=== PATIENT | female | born 1960 | race Asian ===

== ENCOUNTER → 2020-05-12 16:21 | Outpatient (CLI) | payer OTHER, SELFPAY | PROVIDERS: Referring Provider Physician Assistant Medical; Visit Provider Physician Assistant Medical | DX: E23.6 Other disorders of pituitary gland (principal); Z53.8 Procedure and treatment not carried out for other reasons ==

== ENCOUNTER → 2020-06-04 12:40 | Outpatient (CLI) | payer OTHER, SELFPAY ==
--- NOTE | 2020-06-04 | DI.MRI.S_ITS ---
PROCEDURE: MR BRAIN (PITUITARY) WWO CON INDICATIONS: Other disorders of pituitary gland TECHNIQUE: Noncontrast sagittal and axial FLAIR, axial gradient echo, axial diffusion and ADC through the brain. Thin-slice sagittal and coronal T1 spin echo, coronal T2 fast spin echo through the pituitary. After the administration contrast, optional dynamic coronal T1 spin echo, thin-slice coronal and sagittal T1 spin echo images through the pituitary fossa; axial T1 spin echo with fat saturation through the brain. COMPARISON: [facility], , MRI BRAIN W/WO CONTRAST, 11/30/2017, 9:39. [facility], , MRI ANGIO BRAIN WO, 11/30/2017, 10:01. FINDINGS: Image quality: Excellent. Pituitary Gland: Within the central/right aspect of the pituitary gland posteriorly, there is again seen a T2 hyperintense focus that measures 5 x 3 x 3 mm. This focus is low signal on T1 weighted images and does not demonstrate definite enhancement. The pituitary gland demonstrates normal signal and bulk. The pituitary stalk and infundibulum have an unremarkable appearance. A normal appearing pituitary bright spot is seen posteriorly on the precontrast sagittal T1-weighted images. The optic chiasm and the ventral forebrain have an unremarkable appearance. CSF Spaces: Ventricles are normal in size and shape. Basal cisterns are patent. No extra-axial fluid collections. Brain: No intracranial bleeds or mass effects. No abnormal intracranial enhancement. Disla-white matter interface is intact. Diffusion weighted images demonstrate no acute ischemic insults. Brainstem is normal. Normal intravascular flow voids are present. Brain parenchymal volume is within normal limits for age. Scattered foci of T2 weighted hyperintensity can be seen within the periventricular deep white matter, which most likely represent early chronic small vessel ischemic change in a patient of this age. Skull and face: Suboccipital craniectomy change can be seen. Calvarial marrow is normal in signal. Orbits appear normal. Sinuses: Sinuses and mastoids are clear. IMPRESSION: A 5 mm cystic focus is seen just to the right of the midline within the pituitary, which is not significantly changed compared to 2018. This may represent a benign pituitary cyst. Please correlate with patient history and endocrine laboratory results. Postoperative changes are seen, with suboccipital craniectomy. Dictated by: Farshad Barrett M.D. on 06/04/2020 at 14:00 Approved by: Sal CedilloD. on 06/04/2020 at 14:06
== END ==
PROVIDERS: PCP Physician Assistant Medical; Referring Provider Physician Assistant Medical; Visit Provider Physician Assistant Medical
DX: E23.6 Other disorders of pituitary gland (principal)
CPT/HCPCS: 70553; A9579

== ENCOUNTER → 2021-05-12 12:44 | Outpatient (CLI) | payer OTHER, SELFPAY ==
--- NOTE | 2021-05-12 | DI.MG.S_ITS ---
BILATERAL DIGITAL DIAGNOSTIC MAMMOGRAM 3D/2D SHORT-TERM FOLLOW-UP: 05/12/2021 CLINICAL: Short term follow up of the left breast, due for bilateral imaging. Comparison is made to exams dated: 10/01/2020 mammogram, 03/26/2020 mammogram, and 03/07/2019 mammogram - [facility]. There are scattered fibroglandular elements in both breasts. There is a 0.8 cm oval focal asymmetry in the left breast at 11 o'clock middle depth. This is not significantly changed. No other significant masses, calcifications, or other findings are seen in either breast. IMPRESSION: INCOMPLETE: NEEDS ADDITIONAL IMAGING EVALUATION The 0.8 cm oval focal asymmetry in the left breast is indeterminate. An ultrasound is recommended for further evaluation and is scheduled to immediately follow this examination. This exam was interpreted at Station ID: [id number]. NOTE: For mammograms, a report in lay terms will be sent to the patient. Approximately 15% of breast malignancies will not be visualized mammographically. In the management of a palpable breast mass, a negative mammogram must not discourage biopsy of a clinically suspicious lesion. Electronically Signed By: Phan Tong M.D. aty/:05/12/2021 14:02:49 ACR BI-RADS Category 0: Incomplete [id number]
--- NOTE | 2021-05-12 | DI.US.S_ITS ---
ULTRASOUND OF LEFT BREAST AND AXILLA: 05/12/2021 CLINICAL: Patient returns for a 6 month follow up of the left breast. Comparison is made to exams dated: 05/12/2021 mammogram - [facility], 10/01/2020 ultrasound, 10/01/2020 mammogram, 03/26/2020 ultrasound, 03/26/2020 mammogram, and 03/25/2019 ultrasound - [facility]. Color flow and real-time ultrasound of the left breast axilla were performed. Disla scale images of the real-time examination were reviewed. There is a 0.9 cm x 0.4 cm x 0.5 cm wider than tall oval mass with a circumscribed margin in the left breast at 11 o'clock middle depth 4 cm from the nipple. This oval mass is hypoechoic with posterior acoustic enhancement. This abnormality is not significantly changed and correlates with mammography findings. IMPRESSION: BENIGN There is no sonographic evidence of malignancy. The 0.9 cm x 0.4 cm x 0.5 cm wider than tall oval mass in the left breast resembles a complicated cyst or a fibroadenoma. This finding has demonstrated two years of stability and is consistent with a benign process. A 1 year screening mammogram is recommended. Findings and recommendations were conveyed to the patient during today's evaluation. This exam was interpreted at Station ID: [id number]. Electronically Signed By: Phan Tong M.D. aty/:05/12/2021 14:45:09 letter sent: Normal Exam Ultrasound BI-RADS: 2 Benign
== END ==
PROVIDERS: PCP Physician Assistant Medical; Referring Provider Nurse Practitioner Family; Visit Provider Nurse Practitioner Family
DX: R92.8 Other abnormal and inconclusive findings on diagnostic imaging of breast (principal); N63.22 Unspecified lump in the left breast, upper inner quadrant
CPT/HCPCS: 76642; 77066; G0279

== ENCOUNTER 2023-04-17 09:00 | Outpatient (RCR) | payer OTHER, SELFPAY ==
--- NOTE | 2023-02-14 12:00 | PT.OPPOC ---
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 Address: [address] [place] [address], [id number] Email: Tanya Nino PA-C Family Provider Non-Staff Primary Care Provider Specialty: Medical Address: [address] [place] [address] [address], [place], [address] Email: Attending Provider Specialty: Address: Phone: Fax: Email: Plan Of Care PT-OP-T Assessment and Plan Start: 02/14/23 09:03 Freq: Status: Active Protocol: Document 02/14/23 09:00 [facility] (Rec: 02/15/23 10:24 [facility] [id number]) Physical Therapy Assessment Rehab Potential Rehabilitation Potential Excellent Evaluation Complexity Number of Personal Factors/Comorbidities 0 Number of Body Systems Impaired 1-2 Clinical Presentation at Evaluation Stable Impairments Impairments Activity Tolerance,Pain, Posture,Soft Tissue Mobility, Strength,Tone Goals 4 Impairment Decreased endurance of the pelvic floor Short Term Goal (STG) Taylor is able to sustain a pelvic floor contraction in supine x 10 sec STG Duration 6 weeks Custodial Goal (LTG) Taylor is able to sustain a pelvic floor contraction in standing x 5-10 seconds LTG Duration 12 weeks 3 Impairment Pelvic floor guarding at rest and substitution with upper abdominal wall with attempting pelvic floor contraction Short Term Goal (STG) Taylor is educated in relaxation of the upper abdominal wall and pelvic floor muscles at rest using diaphragmatic breathing STG Duration 4 week s Pattern Duplicator Goal (LTG) Taylor is able to relax her pelvic floor to baseline on EMG biofeedback and is able to engage her pelvic floor without upper abdominal substitution LTG Duration 12 weeks 2 Impairment Pelvic floor weakness with MMT for the levator ani 2/5 Custodial Goal (LTG) spenser presents with improved muscle recruitment and strength to 3/5 MMT or better LTG Duration 12 weeks 1 Impairment pelvic pain rated 4-5/10 that is worse as the day progresses and can wake her up at night Short Term Goal (STG) Taylor is educated on pelvic decompression exercises to try at night STG Duration 4 weeks Custodial Goal (LTG) taylor reports a overall reduction in pelvic pain to a 1-2/10 and is no longer waking up with pelvic pressure at night LTG Duration 12 weeks Assessment Summary Assessment Taylor is a 63 year old female referred to PT with chief complaint of pelvic pain and heaviness from pelvic congestion and pelvic organ prolapse. She describes pelvic pain as being worse at night and she will also wake up with discomfort. The discomfort makes her feel as if she needs to have a bowel movement and void. After she goes to the bathroom she notes she feels better. She does have a history of a Leep procedure in 2015. With exam today Taylor presents with tightness of the upper abdominal wall and decreased fascial mobility of the diaphragm. She tends to stand with this tightness at rest which can create a downward pressure on her pelvic organs. There is also restricted mobility in the suprapubic fascia. With pelvic floor exam Taylor presents with guarding and tightness of the levator ani along with weakness. She does note she has been experiencing pain with intercourse so has not been sexually active. 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 I worked with tactile cues to facilitate pelvic floor relaxation in between pelvic floor contractions and Taylor started to be able to relax more with repetitions. She is a good candidate for pelvic floor training using EMG biofeedback, pelvic floor decompression exercises and positioning, myofascial release techniques for the abdominal and suprapubic fascia and HEP. Physical Therapy Plan Frequency and Duration Frequency of Treatment 1x/Week Duration of treatment (weeks) 12 Plan of Care Start Date 02/14/23 Plan of Care End Date 05/02/23 Therapeutic Interventions Therapeutic Interventions Home Exercise Program,Manual Therapy,Patient/Caregiver Education,Self-Care/Home Management,Soft Tissue Mobilization,Therapeutic Exercises Modalities Biofeedback Next Visit Focus/Plan Next Note Type Treatment Note Next Visit Plan Begin diaphragmatic breathing exercises and stretches for the pelvic floor, begin EMG biofeedback for pelvic floor endurance training Plan of Care Dates Plan of Care Start Date 02/14/23 Plan of Care End Date 05/02/23 Electronically Signed by: Chata Santiago PT 02/15/23 1101 If you are in agreement with this Plan of Care, please return a signed and dated copy. I have reviewed this Plan of Care and certify that the skilled therapy services above are required to meet the patient?s needs. Physician Signature Date Printed Name and Credentials Clinical Instructor Signature Printed Name and Credentials
--- NOTE | 2023-02-14 12:00 | PT.OIE ---
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 Address: [address] [place] [address], [id number] Email: Tanya Nino PA-C Family Provider Non-Staff Primary Care Provider Specialty: Medical Address: [facility] [address], [place], [address] Email: Attending Provider Specialty: Address: Phone: Fax: Email: Physical Therapy Initial Evaluation PT-OP-A Visit Information Start: 02/14/23 09:03 Freq: Status: Active Protocol: Document 02/14/23 09:04 [facility] (Rec: 02/14/23 09:24 [facility] [id number]) Out-Patient Physical Therapy Visit Information Visit Information Visit Type Initial Evaluation Visit Start Time 09:00 Visit Stop Time 09:45 Total Visit Minutes 45 Visit Number 1 Evaluation Information Evaluation Date 02/14/23 PT-OP-B Current Condition Start: 02/14/23 09:03 Freq: Status: Active Protocol: Document 02/14/23 09:00 [facility] (Rec: 02/14/23 09:24 [facility] [id number]) Current Condition History of Current Condition Onset Date 3 years Current Complaints pelvic pain, pelvic pressure, cramping, urinary urgency History of Current Condition pelvic pain worse at night and early in the am, she gets cramps and feels like she is going to the bathroom and it wakes her up. She has to go to the bathroom and stay there to void or have a bowel movement and afterwards she will feel better. Symptoms have been going on for 3 years . She had a hx of abnormal pap smear in 2014 and she had a Leep procedure to removal of the tissue. Now she has a normal but they found a uterine prolapse. She notes frequent voiding at home she goes every hour but at work she ignores it. She only leaks if she holds too long. She has daily bowel movements. She describes her pain as cramping and rates it 4-5/10 only 1 time per week does she wake up to go to the bathroom . With increased activity she can feel the pressure. PT-OP-C Subjective Start: 02/14/23 09:03 Freq: Status: Active Protocol: Document 02/14/23 09:00 [facility] (Rec: 02/15/23 10:24 [facility] [id number]) OP-PT Pain Assessment Pain Assessment Grid Paper Pain Assessment Grid Completed Yes Location pelvic pain Pain Location Details pelvic region and suprapubic fascia Intensity 5 Scale Used Numeric (0 - 10) Description Cramping,Pressure PT-OP-F Manual Assessment Start: 02/15/23:24 Freq: Status: Active Protocol: Document 02/14/23 09:00 [facility] (Rec: 02/15/23 10:25 [facility] [id number]) Manual Assessments Soft Tissue Assessment Soft Tissue Mobility Assessment tightness in the fascia surrounding the diaphragm, obliques, and in the suprapubic fascia PT-OP-I Pelvic Floor Start: 02/14/23 09:03 Freq: Status: Active Protocol: Document 02/14/23 09:25 [facility] (Rec: 02/14/23 09:48 [facility] [id number]) Pelvic Floor Assessment Urine Pelvic Floor Surgery No Urinary Symptoms Urge Sensation Other Urinary Symptoms pelvic pain and heaviness, frequent urination Pelvic Clock Pelvic Clock 3-6 Guarding Pelvic Clock 6-9 Guarding Pelvic Clock 9-12 Guarding Pelvic Clock Other Taylor presents with pelvic floor muscle guarding and decreased ability to relax her pelvic floor, with tactile cues we worked on pelvic floor contract/relax and I used manual pressure to encourage pelvic floor relaxation and this did improve with repetitions. Taylor also tends to tighten in her obliques creating a downward pressure on her pelvic organs with attempts at isolating the pelvic floor Prolapse Uterine Prolapse Grade 1 Contraction Ability Voluntary Contraction Weak Voluntary Relaxation Weak Manual Muscle Testing Left 2 Manual Muscle Testing Right 2 Manual Muscle Testing Anterior 2 Manual Muscle Testing Posterior 2 Muscle Endurance (Seconds) 5 Comments Pelvic Floor Comments decreased endurance at 5 seconds only PT-OP-Q Treatments Start: 02/14/23 09:03 Freq: Status: Active Protocol: Document 02/14/23 12:43 [facility] (Rec: 02/14/23 12:43 [facility] [id number]) Therapeutic Exercises Supine Exercises pelvic floor contract and relax hold x 5 rest x 10 sec Reps/Minutes hold x 5 sec rest x 10 seconds PT-OP-T Assessment and Plan Start: 02/14/23 09:03 Freq: Status: Active Protocol: Document 02/14/23 09:00 [facility] (Rec: 02/15/23 10:24 [facility] [id number]) Physical Therapy Assessment Rehab Potential Rehabilitation Potential Excellent Evaluation Complexity Number of Personal Factors/Comorbidities 0 Number of Body Systems Impaired 1-2 Clinical Presentation at Evaluation Stable Impairments Impairments Activity Tolerance,Pain, Posture,Soft Tissue Mobility, Strength,Tone Goals 4 Impairment Decreased endurance of the pelvic floor Short Term Goal (STG) Taylor is able to sustain a pelvic floor contraction in supine x 10 sec STG Duration 6 weeks Research Assistant Member Goal (LTG) Taylor is able to sustain a pelvic floor contraction in standing x 5-10 seconds LTG Duration 12 weeks 3 Impairment Pelvic floor guarding at rest and substitution with upper abdominal wall with attempting pelvic floor contraction Short Term Goal (STG) Taylor is educated in relaxation of the upper abdominal wall and pelvic floor muscles at rest using diaphragmatic breathing STG Duration 4 week s Longterm Goal (LTG) Taylor is able to relax her pelvic floor to baseline on EMG biofeedback and is able to engage her pelvic floor without upper abdominal substitution LTG Duration 12 weeks 2 Impairment Pelvic floor weakness with MMT for the levator ani 2/5 Longterm Goal (LTG) spenser presents with improved muscle recruitment and strength to 3/5 MMT or better LTG Duration 12 weeks 1 Impairment pelvic pain rated 4-5/10 that is worse as the day progresses and can wake her up at night Short Term Goal (STG) Taylor is educated on pelvic decompression exercises to try at night STG Duration 4 weeks Research Assistant Member Goal (LTG) taylor reports a overall reduction in pelvic pain to a 1-2/10 and is no longer waking up with pelvic pressure at night LTG Duration 12 weeks Assessment Summary Assessment Taylor is a 63 year old female referred to PT with chief complaint of pelvic pain and heaviness from pelvic congestion and pelvic organ prolapse. She describes pelvic pain as being worse at night and she will also wake up with discomfort. The discomfort makes her feel as if she needs to have a bowel movement and void. After she goes to the bathroom she notes she feels better. She does have a history of a Leep procedure in 2015. With exam today Taylor presents with tightness of the upper abdominal wall and decreased fascial mobility of the diaphragm. She tends to stand with this tightness at rest which can create a downward pressure on her pelvic organs. There is also restricted mobility in the suprapubic fascia. With pelvic floor exam Taylor presents with guarding and tightness of the levator ani along with weakness. She does note she has been experiencing pain with intercourse so has not been sexually active. 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 I worked with tactile cues to facilitate pelvic floor relaxation in between pelvic floor contractions and Taylor started to be able to relax more with repetitions. She is a good candidate for pelvic floor training using EMG biofeedback, pelvic floor decompression exercises and positioning, myofascial release techniques for the abdominal and suprapubic fascia and HEP. Physical Therapy Plan Frequency and Duration Frequency of Treatment 1x/Week Duration of treatment (weeks) 12 Plan of Care Start Date 02/14/23 Plan of Care End Date 05/02/23 Therapeutic Interventions Therapeutic Interventions Home Exercise Program,Manual Therapy,Patient/Caregiver Education,Self-Care/Home Management,Soft Tissue Mobilization,Therapeutic Exercises Modalities Biofeedback Next Visit Focus/Plan Next Note Type Treatment Note Next Visit Plan Begin diaphragmatic breathing exercises and stretches for the pelvic floor, begin EMG biofeedback for pelvic floor endurance training
--- NOTE | 2023-03-01 12:14 | PT.OTN ---
Current Diagnoses Pelvic muscle wasting (03/01/23) Female genital prolapse, unspecified (03/01/23) Other specified conditions associated with female genital organs and menstrual cycle (03/01/23) Physical Therapy Treatment Note PT-OP-A Visit Information Start: 02/14/23 09:03 Freq: Status: Active Protocol: Document 03/01/23 11:18 [facility] (Rec: 03/01/23 12:14 [facility] [id number]) Out-Patient Physical Therapy Visit Information Visit Information Visit Type Treatment Note Visit Start Time 11:18 Visit Stop Time 12:00 Visit Number 2 PT-OP-B Current Condition Start: 02/14/23 09:03 Freq: Status: Active Protocol: Document 02/14/23 09:00 [facility] (Rec: 02/14/23 09: [facility] [id number]) Current Condition History of Current Condition Onset Date 3 years Current Complaints pelvic pain, pelvic pressure, cramping, urinary urgency History of Current Condition pelvic pain worse at night and early in the am, she gets cramps and feels like she is going to the bathroom and it wakes her up. SHe has to go to the bathroom and stay there to void or have a bowel movement and afterwards she adalid feel better. Symptoms have been going on for 3 years . She had a hx of abnormal pap smear in 2014 and she had a Leep procedure to removal of the tissue. Now she has a normal but they found a uterine prolapse. She notes frequent voiding at home she ges every hour but at work she ignores it. She only leaks if she holds too long. She has daily bowel movements. SHe describes her pain as cramping and rates it 4-5/10 only 1 time per week does she wake up to go to the bathroom . With increased activity she can feel the pressure. PT-OP-C Subjective Start: 02/14/23 09:03 Freq: Status: Active Protocol: Document 03/01/23 11:18 [facility] (Rec: 03/01/23 12:14 [facility] [id number]) OP-PT Subjective Patient Comments Patient Comments pt noes she did good working on her exercises PT-OP-F Manual Assessment Start: 02/15/23 10:24 Freq: Status: Active Protocol: Document 02/14/23 09:00 [facility] (Rec: 02/15/23 10:25 [facility] [id number]) Manual Assessments Soft Tissue Assessment Soft Tissue Mobility Assessment tightness in the fascia surrounding the diaphraghm, obliques, and in the suprapubic fascia PT-OP-I Pelvic Floor Start: 02/14/23 09:03 Freq: Status: Active Protocol: Document 02/14/23 09:25 [facility] (Rec: 02/14/23 09:48 [facility] [id number]) Pelvic Floor Assessment Urine Pelvic Floor Surgery No Urinary Symptoms Urge Sensation Other Urinary Symptoms pelvic pain and heaviness, frequent urination Pelvic Clock Pelvic Clock 3-6 Guarding Pelvic Clock 6-9 Guarding Pelvic Clock 9-12 Guarding Pelvic Clock Other Amy presents with pelvic floor muscle guarding and decreased ability to relax her pelvic floor, with taclike cues we worked on pelvic floor contract/relax and I used manual pressure to encourage pelvic floor relaxation and this did improve with repititions. mAy also tends to tighten in her obliques creating a downward pressure on her pelvic organs with attempts at isolating the pelvic floor Prolapse Uterine Prolapse Grade 1 Contraction Ability Voluntary Contraction Weak Voluntary Relaxation Weak Manual Muscle Testing Left 2 Manual Muscle Testing Right 2 Manual Muscle Testing Anterior 2 Manual Muscle Testing Posterior 2 Muscle Endurance (Seconds) 5 Comments Pelvic Floor Comments decreased endurance at 5 seconds only PT-OP-Q Treatments Start: 02/14/23 09:03 Freq: Status: Active Protocol: Document 03/01/23 11:18 [facility] (Rec: 03/01/23 12:14 [facility] [id number]) Therapeutic Exercises Supine Exercises pelvic floor 10 sec holds Supine Exercise Name with EMG biofeedback Reps/Minutes average 11 max 20 resting tone of the pelvic floor on EMG biofeedback Comments 3.0 at rest diaphragmatic breathing Reps/Minutes x 10 rounds Comments inhale x 4 exhale x 4 Manual Therapy Treatment Soft Tissue Mobilization visceral mobilization of the bladder Comments worked on mobilization of the bladder in supine, tightness of the suprapubic fascia is present but Amy is able to tolerate well. fascial release of the diaphragm and upper abdominal wall Mobilization Type Myofascial Release Body Position Supine Comments tightness and guarding of the upper abdominal wall and diaphraghm PT-OP-T Assessment and Plan Start: 02/14/23 09:03 Freq: Status: Active Protocol: Document 03/01/23 11:18 [facility] (Rec: 03/01/23 12:14 [facility] [id number]) Physical Therapy Assessment Goals 4 Impairment Decreased endurance of the pelvic floor Short Term Goal (STG) Amy is able to sustain a pelvic floor contraction in supine x 10 sec STG Duration 6 weeks Intermediate Goal (LTG) Amy is able to sustain a pelvic floor contraction in standing x 5-10 seconds LTG Duration 12 weeks 3 Impairment Pelvic floor guarding at rest and substitution with upper abdominal wall with attempting pelvic floor contraction Short Term Goal (STG) Amy is educated in relaxation of the upper abdominal wall and pelvic floor muscles at rest using diaphragmiatic breathing STG Duration 4 week s Mincemeat Maker Goal (LTG) Amy is able to relax her pelvic floor to baseline on EMG biofeedback and is able to engage her pelvic floor without upper abdominal substitution LTG Duration 12 weeks 2 Impairment Pelvic floor weakness with MMT for the levator ani 2/5 Mincemeat Maker Goal (LTG) spenser presents with improved muscle recruitment and strength to 3/5 MMT or better LTG Duration 12 weeks 1 Impairment pelvic pain rated 4-5/10 that is worse as the day progresses and can wake her up at night Short Term Goal (STG) Amy is educated on pelvic decompression exercises to try at night STG Duration 4 weeks Intermediate Goal (LTG) amy reports a overall reduction in pelvic pain to a 1-2/10 and is no longer waking up with pelvic pressure at night LTG Duration 12 weeks Assessment Summary Assessment I started MFR and visceral massage today in the upper abdominal wall and suprapubic fascia and amy tolerated well. She was educated in diaphragmatic breathing and EMG biofeedback was initiated. Resting tone started at 3.0 uv and decreased to 1.5 and sometimes baseline with pelvic floor long holds Physical Therapy Plan Next Visit Focus/Plan Next Note Type Treatment Note Next Visit Plan continue with diaphragmatic breathing and EMG biofeedback, progress hip abduction with theraband and stretches for the pelvic floor. Check in with how Amy is doing with toileting with working on pelvic floor relaxation
--- NOTE | 2023-03-08 15:48 | PT.OTN ---
Current Diagnoses Pelvic muscle wasting (03/08/23) Female genital prolapse, unspecified (03/08/23) Other specified conditions associated with female genital organs and menstrual cycle (03/08/23) Physical Therapy Treatment Note PT-OP-A Visit Information Start: 02/14/23 09:03 Freq: Status: Active Protocol: Document 03/08/23 08:20 [facility] (Rec: 03/08/23 08:27 [facility] [id number]) Out-Patient Physical Therapy Visit Information Visit Information Visit Type Treatment Note Visit Start Time 08:20 Visit Stop Time 09:00 Visit Number 3 PT-OP-B Current Condition Start: 02/14/23 09:03 Freq: Status: Active Protocol: Document 02/14/23 09:00 [facility] (Rec: 02/14/23 09:24 [facility] [id number]) Current Condition History of Current Condition Onset Date 3 years Current Complaints pelvic pain, pelvic pressure, cramping, urinary urgency History of Current Condition pelvic pain worse at night and early in the am, she gets cramps and feels like she is going to the bathroom and it wakes her up. SHe has to go to the bathroom and stay there to void or have a bowel movement and afterwards she adalid feel better. Symptoms have been going on for 3 years . She had a hx of abnormal pap smear in 2014 and she had a Leep procedure to removal of the tissue. Now she has a normal but they found a uterine prolapse. She notes frequent voiding at home she ges every hour but at work she ignores it. She only leaks if she holds too long. She has daily bowel movements. SHe describes her pain as cramping and rates it 4-5/10 only 1 time per week does she wake up to go to the bathroom . With increased activity she can feel the pressure. PT-OP-C Subjective Start: 02/14/23 09:03 Freq: Status: Active Protocol: Document 03/08/23 08:20 [facility] (Rec: 03/08/23 08:27 [facility] [id number]) OP-PT Subjective Patient Comments Patient Comments pt notes she was cramping on the right side, she woke up in the middle of the night she had a bad cramp one time this past week PT-OP-F Manual Assessment Start: 02/15/23 10:24 Freq: Status: Active Protocol: Document 02/14/23 09:00 [facility] (Rec: 02/15/23 10:25 [facility] [id number]) Manual Assessments Soft Tissue Assessment Soft Tissue Mobility Assessment tightness in the fascia surrounding the diaphraghm, obliques, and in the suprapubic fascia PT-OP-I Pelvic Floor Start: 02/14/23 09:03 Freq: Status: Active Protocol: Document 02/14/23 09:25 [facility] (Rec: 02/14/23 09:48 [facility] [id number]) Pelvic Floor Assessment Urine Pelvic Floor Surgery No Urinary Symptoms Urge Sensation Other Urinary Symptoms pelvic pain and heaviness, frequent urination Pelvic Clock Pelvic Clock 3-6 Guarding Pelvic Clock 6-9 Guarding Pelvic Clock 9-12 Guarding Pelvic Clock Other Amy presents with pelvic floor muscle guarding and decreased ability to relax her pelvic floor, with taclike cues we worked on pelvic floor contract/relax and I used manual pressure to encourage pelvic floor relaxation and this did improve with repititions. Amy also tends to tighten in her obliques creating a downward pressure on her pelvic organs with attempts at isolating the pelvic floor Prolapse Uterine Prolapse Grade 1 Contraction Ability Voluntary Contraction Weak Voluntary Relaxation Weak Manual Muscle Testing Left 2 Manual Muscle Testing Right 2 Manual Muscle Testing Anterior 2 Manual Muscle Testing Posterior 2 Muscle Endurance (Seconds) 5 Comments Pelvic Floor Comments decreased endurance at 5 seconds only PT-OP-Q Treatments Start: 02/14/23 09:03 Freq: Status: Active Protocol: Document 03/08/23 08:20 [facility] (Rec: 03/08/23 09:01 [facility] [id number]) Therapeutic Exercises Supine Exercises modified squat stretch Reps/Minutes hold 30 -2 min pelvic floor 10 sec holds Supine Exercise Name with EMG biofeedback Reps/Minutes average 11 max 20 resting tone of the pelvic floor on EMG biofeedback Comments 2.5 uv resting pelvic floor contract and relax hold x 5 rest x 10 sec Reps/Minutes hold x 5 sec rest x 10 seconds Comments average 14.3 and 25.6 Manual Therapy Treatment Soft Tissue Mobilization visceral mobilization of the bladder Comments worked on mobilization of the bladder in supine, tightness of the suprapubic fascia is present but Amy is able to tolerate well. fascial release of the diaphragm and upper abdominal wall Mobilization Type Myofascial Release Body Position Supine Comments tightness and guarding of the upper abdominal wall and diaphraghm PT-OP-T Assessment and Plan Start: 02/14/23 09:03 Freq: Status: Active Protocol: Document 03/08/23 08:20 [facility] (Rec: 03/13/23 15:47 [facility] [id number]) Physical Therapy Assessment Assessment Summary Assessment Amy is responding well to abdominal massage and MFR over the suprapubic fascia. She is doing better with her pelvic floor long holds for endurance this week as compared to last week Physical Therapy Plan Frequency and Duration Frequency of Treatment 1x/Week Duration of treatment (weeks) 12 Plan of Care Start Date 02/14/23 Plan of Care End Date 05/02/23 Therapeutic Interventions Therapeutic Interventions Home Exercise Program,Manual Therapy,Patient/Caregiver Education,Self-Care/Home Management,Soft Tissue Mobilization,Therapeutic Exercises Modalities Biofeedback Next Visit Focus/Plan Next Note Type Treatment Note Next Visit Plan continue with diaphragmatic breathing and EMG biofeedback, progress hip abduction with theraband and stretches for the pelvic floor. Check in with how Amy is doing with toileting with working on pelvic floor relaxation
--- NOTE | 2023-03-27 17:01 | PT.OTN ---
Current Diagnoses Pelvic muscle wasting (03/27/23) Female genital prolapse, unspecified (03/27/23) Other specified conditions associated with female genital organs and menstrual cycle (03/27/23) Physical Therapy Treatment Note PT-OP-A Visit Information Start: 02/14/23 09:03 Freq: Status: Active Protocol: Document 03/27/23 09:00 [facility] (Rec: 03/27/23 09:46 [facility] [id number]) Out-Patient Physical Therapy Visit Information Visit Information Visit Type Treatment Note Visit Start Time 09:00 Visit Stop Time 09:45 Visit Number 4 PT-OP-B Current Condition Start: 02/14/23 09:03 Freq: Status: Active Protocol: Document 02/14/23 09:00 [facility] (Rec: 02/14/23 09:24 [facility] [id number]) Current Condition History of Current Condition Onset Date 3 years Current Complaints pelvic pain, pelvic pressure, cramping, urinary urgency History of Current Condition pelvic pain worse at night and early in the am, she gets cramps and feels like she is going to the bathroom and it wakes her up. SHe has to go to the bathroom and stay there to void or have a bowel movement and afterwards she adalid feel better. Symptoms have been going on for 3 years . She had a hx of abnormal pap smear in 2014 and she had a Leep procedure to removal of the tissue. Now she has a normal but they found a uterine prolapse. She notes frequent voiding at home she ges every hour but at work she ignores it. She only leaks if she holds too long. She has daily bowel movements. SHe describes her pain as cramping and rates it 4-5/10 only 1 time per week does she wake up to go to the bathroom . With increased activity she can feel the pressure. PT-OP-C Subjective Start: 02/14/23 09:03 Freq: Status: Active Protocol: Document 03/27/23 09:00 [facility] (Rec: 03/27/23 09:46 [facility] [id number]) OP-PT Subjective Patient Comments Patient Comments pt reports her symptoms are not as bad as they were, no complaints of cramping at night and only 1 episode of pelvic pain this past week PT-OP-F Manual Assessment Start: 02/15/23 10:24 Freq: Status: Active Protocol: Document 02/14/23 09:00 [facility] (Rec: 02/15/23 10:25 [facility] [id number]) Manual Assessments Soft Tissue Assessment Soft Tissue Mobility Assessment tightness in the fascia surrounding the diaphraghm, obliques, and in the suprapubic fascia PT-OP-I Pelvic Floor Start: 02/14/23 09:03 Freq: Status: Active Protocol: Document 02/14/23 09:25 [facility] (Rec: 02/14/23 09:48 [facility] [id number]) Pelvic Floor Assessment Urine Pelvic Floor Surgery No Urinary Symptoms Urge Sensation Other Urinary Symptoms pelvic pain and heaviness, frequent urination Pelvic Clock Pelvic Clock 3-6 Guarding Pelvic Clock 6-9 Guarding Pelvic Clock 9-12 Guarding Pelvic Clock Other Amy presents with pelvic floor muscle guarding and decreased ability to relax her pelvic floor, with taclike cues we worked on pelvic floor contract/relax and I used manual pressure to encourage pelvic floor relaxation and this did improve with repititions. Amy also tends to tighten in her obliques creating a downward pressure on her pelvic organs with attempts at isolating the pelvic floor Prolapse Uterine Prolapse Grade 1 Contraction Ability Voluntary Contraction Weak Voluntary Relaxation Weak Manual Muscle Testing Left 2 Manual Muscle Testing Right 2 Manual Muscle Testing Anterior 2 Manual Muscle Testing Posterior 2 Muscle Endurance (Seconds) 5 Comments Pelvic Floor Comments decreased endurance at 5 seconds only PT-OP-Q Treatments Start: 02/14/23 09:03 Freq: Status: Active Protocol: Document 03/27/23 09:00 [facility] (Rec: 03/27/23 09:46 [facility] [id number]) Therapeutic Exercises Supine Exercises roll outs with theraband Reps/Minutes x 20 level 3 theraband modified squat stretch Reps/Minutes hold 30 -2 min pelvic floor 10 sec holds Equipment Used x 10 reps with EMGbiofeedback Reps/Minutes average 13.1 and max of 22.6 10 sec on 10 sec off resting tone of the pelvic floor on EMG biofeedback Comments 1.1 average rest diaphragmatic breathing Reps/Minutes x 10 rounds Comments inhale x 4 exhale x 6 Manual Therapy Treatment Soft Tissue Mobilization visceral mobilization of the bladder Comments worked on mobilization of the bladder in supine, tightness of the suprapubic fascia is present but Amy is able to tolerate well. fascial release of the diaphragm and upper abdominal wall Mobilization Type Myofascial Release Body Position Supine Comments tightness and guarding of the upper abdominal wall and diaphraghm PT-OP-T Assessment and Plan Start: 02/14/23 09:03 Freq: Status: Active Protocol: Document 03/27/23 09:00 [facility] (Rec: 03/27/23 09:46 [facility] [id number]) Physical Therapy Assessment Goals 4 Impairment Decreased endurance of the pelvic floor Short Term Goal (STG) Amy is able to sustain a pelvic floor contraction in supine x 10 sec STG Duration 6 weeks Intermediate Goal (LTG) Amy is able to sustain a pelvic floor contraction in standing x 5-10 seconds LTG Duration 12 weeks 3 Impairment Pelvic floor guarding at rest and substitution with upper abdominal wall with attempting pelvic floor contraction Short Term Goal (STG) Amy is educated in relaxation of the upper abdominal wall and pelvic floor muscles at rest using diaphragmiatic breathing STG Duration 4 week s Pulp Beater Goal (LTG) Amy is able to relax her pelvic floor to baseline on EMG biofeedback and is able to engage her pelvic floor without upper abdominal substitution LTG Duration 12 weeks 2 Impairment Pelvic floor weakness with MMT for the levator ani 2/5 Intermediate Goal (LTG) spenser presents with improved muscle recruitment and strength to 3/5 MMT or better LTG Duration 12 weeks 1 Impairment pelvic pain rated 4-5/10 that is worse as the day progresses and can wake her up at night Short Term Goal (STG) Amy is educated on pelvic decompression exercises to try at night goal met STG Duration 4 weeks Pulp Beater Goal (LTG) amy reports a overall reduction in pelvic pain to a 1-2/10 and is no longer waking up with pelvic pressure at night at this point she has felt the pain only one time in the past couple of weeks . She is no longer waking at night with pelvic pressure. LTG Duration 12 weeks Assessment Summary Assessment Amy is demonstrating improvement with decreased tension in her pelvic floor at rest and pain levels are decreasing. Physical Therapy Plan Frequency and Duration Frequency of Treatment 1x/Week Duration of treatment (weeks) 12 Plan of Care Start Date 02/14/23 Plan of Care End Date 05/02/23 Therapeutic Interventions Therapeutic Interventions Home Exercise Program,Manual Therapy,Patient/Caregiver Education,Self-Care/Home Management,Soft Tissue Mobilization,Therapeutic Exercises Modalities Biofeedback Next Visit Focus/Plan Next Note Type Treatment Note Next Visit Plan review hip ER with theraband, continue with MFR techniques and pelvic floor endurance training with EMG biofeedback. Review toileting next visit
--- NOTE | 2023-04-03 17:04 | PT.OTN ---
Current Diagnoses Pelvic muscle wasting (04/03/23) Female genital prolapse, unspecified (04/03/23) Other specified conditions associated with female genital organs and menstrual cycle (04/03/23) Physical Therapy Treatment Note PT-OP-A Visit Information Start: 02/14/23 09:03 Freq: Status: Active Protocol: Document 04/03/23 09:02 [facility] (Rec: 04/03/23 09:50 [facility] [id number]) Out-Patient Physical Therapy Visit Information Visit Information Visit Type Treatment Note Visit Start Time 09:02 Visit Stop Time 09:45 Visit Number 5 PT-OP-B Current Condition Start: 02/14/23 09:03 Freq: Status: Active Protocol: Document 02/14/23 09:00 [facility] (Rec: 02/14/23 09:24 [facility] [id number]) Current Condition History of Current Condition Onset Date 3 years Current Complaints pelvic pain, pelvic pressure, cramping, urinary urgency History of Current Condition pelvic pain worse at night and early in the am, she gets cramps and feels like she is going to the bathroom and it wakes her up. SHe has to go to the bathroom and stay there to void or have a bowel movement and afterwards she adalid feel better. Symptoms have been going on for 3 years . She had a hx of abnormal pap smear in 2014 and she had a Leep procedure to removal of the tissue. Now she has a normal but they found a uterine prolapse. She notes frequent voiding at home she ges every hour but at work she ignores it. She only leaks if she holds too long. She has daily bowel movements. SHe describes her pain as cramping and rates it 4-5/10 only 1 time per week does she wake up to go to the bathroom . With increased activity she can feel the pressure. PT-OP-C Subjective Start: 02/14/23 09:03 Freq: Status: Active Protocol: Document 04/03/23 09:02 [facility] (Rec: 04/03/23 09:50 [facility] [id number]) OP-PT Subjective Patient Comments Patient Comments pt reports she is not feeling any pain and is doing much better overall. She still notes urinary urgency and is voiding approx every 45 min throughout the day PT-OP-F Manual Assessment Start: 02/15/23 10:24 Freq: Status: Active Protocol: Document 02/14/23 09:00 [facility] (Rec: 02/15/23 10:25 [facility] [id number]) Manual Assessments Soft Tissue Assessment Soft Tissue Mobility Assessment tightness in the fascia surrounding the diaphraghm, obliques, and in the suprapubic fascia PT-OP-I Pelvic Floor Start: 02/14/23 09:03 Freq: Status: Active Protocol: Document 02/14/23 09:25 [facility] (Rec: 02/14/23 09:48 [facility] [id number]) Pelvic Floor Assessment Urine Pelvic Floor Surgery No Urinary Symptoms Urge Sensation Other Urinary Symptoms pelvic pain and heaviness, frequent urination Pelvic Clock Pelvic Clock 3-6 Guarding Pelvic Clock 6-9 Guarding Pelvic Clock 9-12 Guarding Pelvic Clock Other Amy presents with pelvic floor muscle guarding and decreased ability to relax her pelvic floor, with taclike cues we worked on pelvic floor contract/relax and I used manual pressure to encourage pelvic floor relaxation and this did improve with repititions. Amy also tends to tighten in her obliques creating a downward pressure on her pelvic organs with attempts at isolating the pelvic floor Prolapse Uterine Prolapse Grade 1 Contraction Ability Voluntary Contraction Weak Voluntary Relaxation Weak Manual Muscle Testing Left 2 Manual Muscle Testing Right 2 Manual Muscle Testing Anterior 2 Manual Muscle Testing Posterior 2 Muscle Endurance (Seconds) 5 Comments Pelvic Floor Comments decreased endurance at 5 seconds only PT-OP-Q Treatments Start: 02/14/23 09:03 Freq: Status: Active Protocol: Document 04/03/23 09:02 [facility] (Rec: 04/03/23 09:50 [facility] [id number]) Therapeutic Exercises Supine Exercises quick pelvic floor contractions Reps/Minutes x 10 reps holding 2 sec and relaxing 2 sec haooy baby stretch Reps/Minutes hold 1-2 min modified squat stretch Reps/Minutes hold 30 -2 min pelvic floor 10 sec holds Equipment Used x 10 reps with EMGbiofeedback Reps/Minutes 15.2 average and max of 24.7 uv resting tone of the pelvic floor on EMG biofeedback Comments at baseline for resting tone Manual Therapy Treatment Soft Tissue Mobilization visceral mobilization of the bladder Comments worked on mobilization of the bladder in supine, she is presenting with decreasing tightness of the suprapubic fascia. fascial release of the diaphragm and upper abdominal wall Mobilization Type Myofascial Release Body Position Supine Comments tightness and guarding of the upper abdominal wall and diaphraghm is slowly decreasing Self-Care/Home Management Treatment Education Patient Education Home Exercise Program Other Education Amy was educated in urge deference technique and bladder retraining today to begin extending her voiding intervals to every hour or better PT-OP-T Assessment and Plan Start: 02/14/23 09:03 Freq: Status: Active Protocol: Document 04/03/23 09:02 [facility] (Rec: 04/03/23 09:50 [facility] [id number]) Physical Therapy Assessment Assessment Summary Assessment Mona is doing better without complaints of pain now. She is still voiding approx every 45 min so we are working on urge deference technique now. Resting tone was at baseline today on EMG biofeedback for the first time and strength measurements continue to show improvement Physical Therapy Plan Frequency and Duration Frequency of Treatment 1x/Week Duration of treatment (weeks) 12 Plan of Care Start Date 02/14/23 Plan of Care End Date 05/02/23 Next Visit Focus/Plan Next Note Type Treatment Note Next Visit Plan review urge deference technique and continue with pelvic floor endurance training
--- NOTE | 2023-04-10 10:01 | PT.OTN ---
Current Diagnoses Pelvic muscle wasting (04/10/23) Female genital prolapse, unspecified (04/10/23) Other specified conditions associated with female genital organs and menstrual cycle (04/10/23) Physical Therapy Treatment Note PT-OP-A Visit Information Start: 02/14/23 09:03 Freq: Status: Active Protocol: Document 04/10/23 09:02 [facility] (Rec: 04/10/23 09:36 [facility] [id number]) Out-Patient Physical Therapy Visit Information Visit Information Visit Type Treatment Note Visit Start Time 09:02 Visit Stop Time 09:45 Visit Number 6 PT-OP-B Current Condition Start: 02/14/23 09:03 Freq: Status: Active Protocol: Document 02/14/23 09:00 [facility] (Rec: 02/14/23 09:24 [facility] [id number]) Current Condition History of Current Condition Onset Date 3 years Current Complaints pelvic pain, pelvic pressure, cramping, urinary urgency History of Current Condition pelvic pain worse at night and early in the am, she gets cramps and feels like she is going to the bathroom and it wakes her up. SHe has to go to the bathroom and stay there to void or have a bowel movement and afterwards she adalid feel better. Symptoms have been going on for 3 years . She had a hx of abnormal pap smear in 2014 and she had a Leep procedure to removal of the tissue. Now she has a normal but they found a uterine prolapse. She notes frequent voiding at home she ges every hour but at work she ignores it. She only leaks if she holds too long. She has daily bowel movements. SHe describes her pain as cramping and rates it 4-5/10 only 1 time per week does she wake up to go to the bathroom . With increased activity she can feel the pressure. PT-OP-C Subjective Start: 02/14/23 09:03 Freq: Status: Active Protocol: Document 04/10/23 09:02 [facility] (Rec: 04/10/23 09:36 [facility] [id number]) OP-PT Subjective Patient Comments Patient Comments pt feels like she is getting better with the urgency, recently it has been better with not as much urgency,no episodes of cramping at night PT-OP-F Manual Assessment Start: 02/15/23 10:24 Freq: Status: Active Protocol: Document 02/14/23 09:00 [facility] (Rec: 02/15/23 10:25 [facility] [id number]) Manual Assessments Soft Tissue Assessment Soft Tissue Mobility Assessment tightness in the fascia surrounding the diaphraghm, obliques, and in the suprapubic fascia PT-OP-I Pelvic Floor Start: 02/14/23 09:03 Freq: Status: Active Protocol: Document 02/14/23 09:25 [facility] (Rec: 02/14/23 09:48 [facility] [id number]) Pelvic Floor Assessment Urine Pelvic Floor Surgery No Urinary Symptoms Urge Sensation Other Urinary Symptoms pelvic pain and heaviness, frequent urination Pelvic Clock Pelvic Clock 3-6 Guarding Pelvic Clock 6-9 Guarding Pelvic Clock 9-12 Guarding Pelvic Clock Other Amy presents with pelvic floor muscle guarding and decreased ability to relax her pelvic floor, with taclike cues we worked on pelvic floor contract/relax and I used manual pressure to encourage pelvic floor relaxation and this did improve with repititions. Amy also tends to tighten in her obliques creating a downward pressure on her pelvic organs with attempts at isolating the pelvic floor Prolapse Uterine Prolapse Grade 1 Contraction Ability Voluntary Contraction Weak Voluntary Relaxation Weak Manual Muscle Testing Left 2 Manual Muscle Testing Right 2 Manual Muscle Testing Anterior 2 Manual Muscle Testing Posterior 2 Muscle Endurance (Seconds) 5 Comments Pelvic Floor Comments decreased endurance at 5 seconds only PT-OP-Q Treatments Start: 02/14/23 09:03 Freq: Status: Active Protocol: Document 04/10/23 09:02 [facility] (Rec: 04/10/23 09:36 [facility] [id number]) Therapeutic Exercises Supine Exercises quick pelvic floor contractions Reps/Minutes x 10 reps holding 2 sec and relaxing 2 sec haooy baby stretch Supine Exercise Name happy baby Reps/Minutes hold 1-2 min roll outs with theraband Reps/Minutes x 20 level 3 theraband modified squat stretch Reps/Minutes hold 30 -2 min pelvic floor 10 sec holds Equipment Used x 10 reps with EMGbiofeedback Reps/Minutes hold 10 sec rest 10 sec Comments 17.2 average max 29.8 uv max resting tone of the pelvic floor on EMG biofeedback Comments at baseline for resting tone diaphragmatic breathing Reps/Minutes x 10 rounds Comments inhale x 4 exhale x 6 Manual Therapy Treatment Soft Tissue Mobilization visceral mobilization of the bladder Comments worked on mobilization of the bladder in supine, she is presenting with decreasing tightness of the suprapubic fascia. fascial release of the diaphragm and upper abdominal wall Mobilization Type Myofascial Release Body Position Supine Comments tightness and guarding of the upper abdominal wall and diaphraghm is slowly decreasing PT-OP-T Assessment and Plan Start: 02/14/23 09:03 Freq: Status: Active Protocol: Document 04/10/23 09:00 [facility] (Rec: 04/10/23 10:01 [facility] [id number]) Physical Therapy Assessment Assessment Summary Assessment Amy has been doing really well with PT, her pelvic floor resting tone has been at rest since last visit and endurance/strength continues to improve. She is no longer experiencing the cramping in her lower abdominal wall and the urge deference technique has been working well for her. She has one visit left and then we will be discharging to a [facility] Physical Therapy Plan Frequency and Duration Frequency of Treatment 1x/Week Duration of treatment (weeks) 12 Plan of Care Start Date 02/14/23 Plan of Care End Date 05/02/23 Therapeutic Interventions Therapeutic Interventions Home Exercise Program,Manual Therapy,Patient/Caregiver Education,Self-Care/Home Management,Soft Tissue Mobilization,Therapeutic Exercises Modalities Biofeedback Next Visit Focus/Plan Next Note Type Treatment Note Next Visit Plan review all established exercises for Amy as this will be her last visit
--- NOTE | 2023-04-18 12:49 | PT.OTN ---
Current Diagnoses Pelvic muscle wasting (04/17/23) Female genital prolapse, unspecified (04/17/23) Other specified conditions associated with female genital organs and menstrual cycle (04/17/23) Physical Therapy Treatment Note PT-OP-A Visit Information Start: 02/14/23 09:03 Freq: Status: Active Protocol: Document 04/17/23 09:06 [facility] (Rec: 04/17/23 09:46 [facility] [id number]) Out-Patient Physical Therapy Visit Information Visit Information Visit Type Treatment Note Visit Start Time 09:05 Visit Stop Time 10:45 Visit Number 7 PT-OP-B Current Condition Start: 02/14/23 09:03 Freq: Status: Active Protocol: Document 02/14/23 09:00 [facility] (Rec: 02/14/23 09:24 [facility] [id number]) Current Condition History of Current Condition Onset Date 3 years Current Complaints pelvic pain, pelvic pressure, cramping, urinary urgency History of Current Condition pelvic pain worse at night and early in the am, she gets cramps and feels like she is going to the bathroom and it wakes her up. SHe has to go to the bathroom and stay there to void or have a bowel movement and afterwards she adalid feel better. Symptoms have been going on for 3 years . She had a hx of abnormal pap smear in 2014 and she had a Leep procedure to removal of the tissue. Now she has a normal but they found a uterine prolapse. She notes frequent voiding at home she ges every hour but at work she ignores it. She only leaks if she holds too long. She has daily bowel movements. SHe describes her pain as cramping and rates it 4-5/10 only 1 time per week does she wake up to go to the bathroom . With increased activity she can feel the pressure. PT-OP-C Subjective Start: 02/14/23 09:03 Freq: Status: Active Protocol: Document 04/17/23 09:06 [facility] (Rec: 04/17/23 09:46 [facility] [id number]) OP-PT Subjective Patient Comments Patient Comments pt reports her urgency has decreased. No more complaints of cramping, she reports waiting 4 hours to void yesterday as she was busy with work and after she finally went she did feel bladder irritation. Overall she is feeling really good and feels ready to be discharged to a independent [facility] Patient Reported Progress Improving PT-OP-F Manual Assessment Start: 02/15/23 10:24 Freq: Status: Active Protocol: Document 02/14/23 09:00 [facility] (Rec: 02/15/23 10:25 [facility] [id number]) Manual Assessments Soft Tissue Assessment Soft Tissue Mobility Assessment tightness in the fascia surrounding the diaphraghm, obliques, and in the suprapubic fascia PT-OP-I Pelvic Floor Start: 02/14/23 09:03 Freq: Status: Active Protocol: Document 02/14/23 09:25 [facility] (Rec: 02/14/23 09:48 [facility] [id number]) Pelvic Floor Assessment Urine Pelvic Floor Surgery No Urinary Symptoms Urge Sensation Other Urinary Symptoms pelvic pain and heaviness, frequent urination Pelvic Clock Pelvic Clock 3-6 Guarding Pelvic Clock 6-9 Guarding Pelvic Clock 9-12 Guarding Pelvic Clock Other Amy presents with pelvic floor muscle guarding and decreased ability to relax her pelvic floor, with taclike cues we worked on pelvic floor contract/relax and I used manual pressure to encourage pelvic floor relaxation and this did improve with repititions. Amy also tends to tighten in her obliques creating a downward pressure on her pelvic organs with attempts at isolating the pelvic floor Prolapse Uterine Prolapse Grade 1 Contraction Ability Voluntary Contraction Weak Voluntary Relaxation Weak Manual Muscle Testing Left 2 Manual Muscle Testing Right 2 Manual Muscle Testing Anterior 2 Manual Muscle Testing Posterior 2 Muscle Endurance (Seconds) 5 Comments Pelvic Floor Comments decreased endurance at 5 seconds only PT-OP-Q Treatments Start: 02/14/23 09:03 Freq: Status: Active Protocol: Document 04/17/23 09:06 [facility] (Rec: 04/17/23 09:46 [facility] [id number]) Therapeutic Exercises Supine Exercises quick pelvic floor contractions Reps/Minutes x 10 reps holding 2 sec and relaxing 2 sec Comments 48.6 uv max haooy baby stretch Supine Exercise Name happy baby Reps/Minutes hold 1-2 min pelvic floor 10 sec holds Reps/Minutes hold 10 sec rest 10 sec Comments 16.1 27.3 Manual Therapy Treatment Soft Tissue Mobilization visceral mobilization of the bladder Comments worked on mobilization of the bladder in supine, she is presenting with decreasing tightness of the suprapubic fascia. fascial release of the diaphragm and upper abdominal wall Mobilization Type Myofascial Release Body Position Supine Comments tightness and guarding of the upper abdominal wall and diaphraghm is slowly decreasing PT-OP-T Assessment and Plan Start: 02/14/23 09:03 Freq: Status: Active Protocol: Document 04/17/23 09:06 [facility] (Rec: 04/17/23 09:46 [facility] [id number]) Physical Therapy Assessment Goals 4 Impairment Decreased endurance of the pelvic floor Short Term Goal (STG) Amy is able to sustain a pelvic floor contraction in supine x 10 sec goal met STG Duration 6 weeks [facility]idential [facility] Goal (LTG) Amy is able to sustain a pelvic floor contraction in standing x 5-10 seconds Amy will continue to work on upright strengthening of her pelvic floor LTG Duration 12 weeks 3 Impairment Pelvic floor guarding at rest and substitution with upper abdominal wall with attempting pelvic floor contraction Short Term Goal (STG) Amy is educated in relaxation of the upper abdominal wall and pelvic floor muscles at rest using diaphragmiatic breathing goal met STG Duration 4 week s Custodial Goal (LTG) Amy is able to relax her pelvic floor to baseline on EMG biofeedback and is able to engage her pelvic floor without upper abdominal substitution goal met LTG Duration 12 weeks 2 Impairment Pelvic floor weakness with MMT for the levator ani 2/5 Residential [facility] Goal (LTG) spenser presents with improved muscle recruitment and strength to 3/5 MMT or better goal met LTG Duration 12 weeks 1 Impairment pelvic pain rated 4-5/10 that is worse as the day progresses and can wake her up at night Short Term Goal (STG) Amy is educated on pelvic decompression exercises to try at night goal met STG Duration 4 weeks Custodial Goal (LTG) amy reports a overall reduction in pelvic pain to a 1-2/10 and is no longer waking up with pelvic pressure at night at this point she has felt the pain only one time in the past couple of weeks . She is no longer waking at night with pelvic pressure. goal met LTG Duration 12 weeks Assessment Summary Assessment Amy has been seen x 7 visits in PT. She has done very well with her PT and her symptoms of pelvic pain have been resolved. She is able to fully relax her pelvic floor at rest and is stronger with her endurance of the pelvic floor. She has been trained in bladder retraining and urge deference technique and is no longer experiencing the urgency she had. At this point she will be discharged to a [facility] Physical Therapy Plan Discharge Physical Therapy Discharge Reasons Goals Met
== END 2023-06-07 12:04 ==
LOC: PHYS 09:00
PROVIDERS: Family Provider Physician Assistant Medical; PCP Physician Assistant Medical; Referring Provider Obstetrics & Gynecology
DX: N94.89 Other specified conditions associated with female genital organs and menstrual cycle (principal); N81.84 Pelvic muscle wasting; N81.9 Female genital prolapse, unspecified
CPT/HCPCS: 97110; 97140; 97161; 97535

== ENCOUNTER → 2024-12-10 15:05 | Outpatient (CLI) | payer OTHER, SELFPAY ==
--- NOTE | 2024-12-10 15:08 | DI.MRI.S_ITS ---
PROCEDURE: MR BRAIN (PITUITARY) GILBERTO CON
== END ==
LOC: MRI 15:07
PROVIDERS: Family Provider Physician Assistant Medical; PCP Physician Assistant; Referring Provider Physician Assistant; Visit Provider Physician Assistant
DX: E23.6 Other disorders of pituitary gland (principal); R51.9 Headache, unspecified
CPT/HCPCS: 70553; A9579